=== PATIENT | male | born 1965 | race Caucasian/White ===

== ENCOUNTER → 2021-04-18 | Outpatient (CLI) | payer BC ==
--- NOTE | 2021-04-18 13:37 | Diagnostic Imaging Report ---
Indication: Pain. Findings: Three-view right shoulder shows severe glenohumeral osteoarthritis. No fracture or dislocation. Ossified body in the subcoracoid bursa noted. Impression: Glenohumeral arthritis and subcoracoid bursal loose body, the latter measuring almost 2 cm. No acute bony pathology. Dictated by: Dictated on workstation # [id number]
== END ==
LOC: RAD FS 10:00
PROVIDERS: ATTEND Nurse Practitioner
DX: M19.011 Primary osteoarthritis, right shoulder (principal)
CPT/HCPCS: 73030

== ENCOUNTER 2021-08-26 10:54 | Emergency (ER) | payer BC ==
[~2021-08-26] VITALS: Ht 175 cm; Wt 98.0 kg
--- OUTSIDE RECORDS SUMMARY | 2021-08-26 11:00 | XMS REPORT | Encounter Summary ---
Author Author [facility] Organization 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 * Radiology Services (Routine) - New Request Diagnoses / Procedures Referred By Contact Referred To [facility] Specialty Diagnoses Polyarthralgia Rash Procedures PELVIS ANTEROPOSTERIOR Christa Fox MD [address] [place] [address] Radiology Referral ID Status Reason Start Date Expiration Visits Vi sits Date Requested Authorized [id number] New Request 07/26/2021 07/26/2022 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 * Radiology Services (Routine) - New Request Diagnoses / Procedures Referred By Contact Referred To [facility] Specialty Diagnoses Polyarthralgia Rash Procedures SI JOINTS MIN 3 VIEWS Christa Fox MD [address] [place] [address] Radiology Referral ID Status Reason Start Date Expiration Visits Vi sits Date Requested Authorized [id number] New Request 07/26/2021 07/26/2022 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 * Radiology Services (Routine) - New Request Diagnoses / Procedures Referred By Contact Referred To [facility] Specialty Diagnoses Polyarthralgia Rash Procedures BOTH KNEES STANDING AP Christa Fox MD [address] [place] [address] Radiology Referral ID Status Reason Start Date Expiration Visits Vi sits Date Requested Authorized [id number] New Request 07/26/2021 07/26/2022 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 * Radiology Services (Routine) - New Request Diagnoses / Procedures Referred By Contact Referred To [facility] Specialty Diagnoses Polyarthralgia Rash Procedures FOOT 2 VIEW BILATERAL Christa Fox MD [address] [place] [address] Radiology Referral ID Status Reason Start Date Expiration Visits Vi sits Date Requested Authorized [id number] New Request 07/26/2021 07/26/2022 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 * Radiology Services (Routine) - New Request Diagnoses / Procedures Referred By Contact Referred To [facility] Specialty Diagnoses Polyarthralgia Rash Procedures HAND 2 VIEWS BILATERAL Christa Fox MD [address] [place] [address] Radiology Referral ID Status Reason Start Date Expiration Visits Vi sits Date Requested Authorized [id number] New Request 07/26/2021 07/26/2022 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 documented as of this encounter Medications at Time of Discharge Start Date End Date Medication Sig Dispensed Refills amLODIPine (NORVASC) 5 mg Take 5 mg by 0 tablet mouth daily. aspirin 81 mg chewable Chew 81 mg by 0 tablet mouth daily. Take with food. CLONIDINE HCL PO Take 0.2 mg 0 by mouth twice daily. 01/22/2021 evolocumab (REPATHA Inject 1 mL 2 mL 11 SURECLICK) 140 mg/mL under the injectable skin every 14 PENIndications: days. Hypercholesteremia 07/20/2021 FARXIGA 10 mg tablet 0 07/20/2021 hydrOXYchloroQUINE Take 600 mg 0 (PLAQUENIL) 200 mg tablet by mouth three times daily. lisinopril-hydrochlorothi Take 1 tablet 0 azide (PRINZIDE, by mouth ZESTORETIC) 20-12.5 mg twice daily. tablet naproxen (NAPROSYN) 375 Take 375 mg 0 mg tablet by mouth twice daily with meals. Take with food. 10/27/2017 nitroglycerin (NITROSTAT) Place 1 25 tablet 3 0.4 mg tabletIndications: tablet under Essential hypertension, tongue every Hypercholesteremia, 5 minutes as Coronary artery disease needed for due to lipid rich plaque, Chest Pain. Coronary artery disease Max of 3 of [place] artery of tablets, call [place] heart with stable 911. angina pectoris (HCC) 04/02/2020 spironolactone Take one 90 tablet 3 (ALDACTONE) 25 mg tablet tablet by mouth daily. Take with food. 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 Rash PELVIS ANTEROPOSTERIOR Routine 07/26/2021 Polyart hralgia 5:08 PM SUBWAY CAR REPAIRER Rash L SPINE AP & LATERAL Routine 07/26/2021 Polyarthr algia 5:08 PM SUBWAY CAR REPAIRER Rash HAND 2 VIEWS BILATERAL Routine 07/26/2021 Polyart hralgia 5:08 PM 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 No evidence of inflammatory arthrit is. 2. 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 Dedicated wrist imaging would be helpful for further evaluation. Finalized by Franklyn Muro M.D. on 07/26/2021 5:20 PM. Dictated by Franklyn Muro M.D. on 07/26/2021 5:13 PM. 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 Arthralgia. COMPARISON: FINDINGS: Feet: No erosions. Mild left midfoot arthrosis with dorsal spurring and chronic ossicle along the naviculocuneiform joint. Mild left first MTP and tibiotalar degenerative arthritis. Bilateral calcaneal spurs. Hands: No erosions. No chondrocalcinosis. 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 Advanced degenerative arthritis left radiocarpal, STT, and first CMC joints. Moderate degenerative arthritis right first CMC and STT joints. Knees: Mild degenerative arthritis both knees with medial compartment narrowing, greater on the right. No erosions. No chondrocalcinosis. Pelvis and SI joints. Hip joint spaces are maintained. Mild degenerative arthritis both SI joints without radiographic findings of sacroiliitis. Lumbar spine: Lower lumbar facet arthritis greatest at L4-L5 and L5-S1. Mild multilevel disc space narrowing. Low-grade anterolisthesis of L4 and L5. Procedure Note Franklyn Muro MD - 07/26/2021 Exam: FOOT 2 VIEW BILATERAL, L SPINE AP & LATERAL, PELVIS ANTEROPOSTERIOR, SI JOINTS MIN 3 VIEWS, BOTH KNEES STANDING AP, HAND 2 VIEWS BILATERAL CLINICAL INDICATION: 56 years. Arthralgia. COMPARISON: FINDINGS: Feet: No erosions. Mild left midfoot arthrosis with dorsal spurring and chronic ossicle along the naviculocuneiform joint. Mild left first MTP and tibiotalar degenerative arthritis. Bilateral calcaneal spurs. Hands: No erosions. No chondrocalcinosis. 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 Advanced degenerative arthritis left radiocarpal, STT, and first CMC joints. Moderate degenerative arthritis right first CMC and STT joints. Knees: Mild degenerative arthritis both knees with medial compartment narrowing, greater on the right. No erosions. No chondrocalcinosis. Pelvis and SI joints. Hip joint spaces are maintained. Mild degenerative arthritis both SI joints without radiographic findings of sacroiliitis. Lumbar spine: Lower lumbar facet arthritis greatest at L4-L5 and L5-S1. Mild multilevel disc space narrowing. Low-grade anterolisthesis of L4 and L5. IMPRESSION 1. No evidence of inflammatory arthriti s. 2. 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 Dedicated wrist imaging would be helpful for further evaluation. Finalized by Franklyn Muro M.D. on 07/26/2021 5:20 PM. Dictated by Franklyn Muro M.D. on 07/26/2021 5:13 PM. 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 No evidence of inflammatory arthrit is. 2. 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 Dedicated wrist imaging would be helpful for further evaluation. Finalized by Franklyn Muro M.D. on 07/26/2021 5:20 PM. Dictated by Franklyn Muro M.D. on 07/26/2021 5:13 PM. 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 Arthralgia. COMPARISON: FINDINGS: Feet: No erosions. Mild left midfoot arthrosis with dorsal spurring and chronic ossicle along the naviculocuneiform joint. Mild left first MTP and tibiotalar degenerative arthritis. Bilateral calcaneal spurs. Hands: No erosions. No chondrocalcinosis. 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 Advanced degenerative arthritis left radiocarpal, STT, and first CMC joints. Moderate degenerative arthritis right first CMC and STT joints. Knees: Mild degenerative arthritis both knees with medial compartment narrowing, greater on the right. No erosions. No chondrocalcinosis. Pelvis and SI joints. Hip joint spaces are maintained. Mild degenerative arthritis both SI joints without radiographic findings of sacroiliitis. Lumbar spine: Lower lumbar facet arthritis greatest at L4-L5 and L5-S1. Mild multilevel disc space narrowing. Low-grade anterolisthesis of L4 and L5. Procedure Note Franklyn Muro MD - 07/26/2021 Exam: FOOT 2 VIEW BILATERAL, L SPINE AP & LATERAL, PELVIS ANTEROPOSTERIOR, SI JOINTS MIN 3 VIEWS, BOTH KNEES STANDING AP, HAND 2 VIEWS BILATERAL CLINICAL INDICATION: 56 years. Arthralgia. COMPARISON: FINDINGS: Feet: No erosions. Mild left midfoot arthrosis with dorsal spurring and chronic ossicle along the naviculocuneiform joint. Mild left first MTP and tibiotalar degenerative arthritis. Bilateral calcaneal spurs. Hands: No erosions. No chondrocalcinosis. 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 Advanced degenerative arthritis left radiocarpal, STT, and first CMC joints. Moderate degenerative arthritis right first CMC and STT joints. Knees: Mild degenerative arthritis both knees with medial compartment narrowing, greater on the right. No erosions. No chondrocalcinosis. Pelvis and SI joints. Hip joint spaces are maintained. Mild degenerative arthritis both SI joints without radiographic findings of sacroiliitis. Lumbar spine: Lower lumbar facet arthritis greatest at L4-L5 and L5-S1. Mild multilevel disc space narrowing. Low-grade anterolisthesis of L4 and L5. IMPRESSION 1. No evidence of inflammatory arthriti s. 2. 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 Dedicated wrist imaging would be helpful for further evaluation. Finalized by Franklyn Muro M.D. on 07/26/2021 5:20 PM. Dictated by Franklyn Muro M.D. on 07/26/2021 5:13 PM. 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 No evidence of inflammatory arthrit is. 2. 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 Dedicated wrist imaging would be helpful for further evaluation. Finalized by Franklyn Muro M.D. on 07/26/2021 5:20 PM. Dictated by Franklyn Muro M.D. on 07/26/2021 5:13 PM. 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 Arthralgia. COMPARISON: FINDINGS: Feet: No erosions. Mild left midfoot arthrosis with dorsal spurring and chronic ossicle along the naviculocuneiform joint. Mild left first MTP and tibiotalar degenerative arthritis. Bilateral calcaneal spurs. Hands: No erosions. No chondrocalcinosis. 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 Advanced degenerative arthritis left radiocarpal, STT, and first CMC joints. Moderate degenerative arthritis right first CMC and STT joints. Knees: Mild degenerative arthritis both knees with medial compartment narrowing, greater on the right. No erosions. No chondrocalcinosis. Pelvis and SI joints. Hip joint spaces are maintained. Mild degenerative arthritis both SI joints without radiographic findings of sacroiliitis. Lumbar spine: Lower lumbar facet arthritis greatest at L4-L5 and L5-S1. Mild multilevel disc space narrowing. Low-grade anterolisthesis of L4 and L5. Procedure Note Franklyn Muro MD - 07/26/2021 Exam: FOOT 2 VIEW BILATERAL, L SPINE AP & LATERAL, PELVIS ANTEROPOSTERIOR, SI JOINTS MIN 3 VIEWS, BOTH KNEES STANDING AP, HAND 2 VIEWS BILATERAL CLINICAL INDICATION: 56 years. Arthralgia. COMPARISON: FINDINGS: Feet: No erosions. Mild left midfoot arthrosis with dorsal spurring and chronic ossicle along the naviculocuneiform joint. Mild left first MTP and tibiotalar degenerative arthritis. Bilateral calcaneal spurs. Hands: No erosions. No chondrocalcinosis. 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 Advanced degenerative arthritis left radiocarpal, STT, and first CMC joints. Moderate degenerative arthritis right first CMC and STT joints. Knees: Mild degenerative arthritis both knees with medial compartment narrowing, greater on the right. No erosions. No chondrocalcinosis. Pelvis and SI joints. Hip joint spaces are maintained. Mild degenerative arthritis both SI joints without radiographic findings of sacroiliitis. Lumbar spine: Lower lumbar facet arthritis greatest at L4-L5 and L5-S1. Mild multilevel disc space narrowing. Low-grade anterolisthesis of L4 and L5. IMPRESSION 1. No evidence of inflammatory arthriti s. 2. 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 Dedicated wrist imaging would be helpful for further evaluation. Finalized by Franklyn Muro M.D. on 07/26/2021 5:20 PM. Dictated by Franklyn Muro M.D. on 07/26/2021 5:13 PM. 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 No evidence of inflammatory arthrit is. 2. 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 Dedicated wrist imaging would be helpful for further evaluation. Finalized by Franklyn Mruo M.D. on 07/26/2021 5:20 PM. Dictated by Franklyn Muro M.D. on 07/26/2021 5:13 PM. 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 Arthralgia. COMPARISON: FINDINGS: Feet: No erosions. Mild left midfoot arthrosis with dorsal spurring and chronic ossicle along the naviculocuneiform joint. Mild left first MTP and tibiotalar degenerative arthritis. Bilateral calcaneal spurs. Hands: No erosions. No chondrocalcinosis. 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 Advanced degenerative arthritis left radiocarpal, STT, and first CMC joints. Moderate degenerative arthritis right first CMC and STT joints. Knees: Mild degenerative arthritis both knees with medial compartment narrowing, greater on the right. No erosions. No chondrocalcinosis. Pelvis and SI joints. Hip joint spaces are maintained. Mild degenerative arthritis both SI joints without radiographic findings of sacroiliitis. Lumbar spine: Lower lumbar facet arthritis greatest at L4-L5 and L5-S1. Mild multilevel disc space narrowing. Low-grade anterolisthesis of L4 and L5. Procedure Note Franklyn Muro MD - 07/26/2021 Exam: FOOT 2 VIEW BILATERAL, L SPINE AP & LATERAL, PELVIS ANTEROPOSTERIOR, SI JOINTS MIN 3 VIEWS, BOTH KNEES STANDING AP, HAND 2 VIEWS BILATERAL CLINICAL INDICATION: 56 years. Arthralgia. COMPARISON: FINDINGS: Feet: No erosions. Mild left midfoot arthrosis with dorsal spurring and chronic ossicle along the naviculocuneiform joint. Mild left first MTP and tibiotalar degenerative arthritis. Bilateral calcaneal spurs. Hands: No erosions. No chondrocalcinosis. 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 Advanced degenerative arthritis left radiocarpal, STT, and first CMC joints. Moderate degenerative arthritis right first CMC and STT joints. Knees: Mild degenerative arthritis both knees with medial compartment narrowing, greater on the right. No erosions. No chondrocalcinosis. Pelvis and SI joints. Hip joint spaces are maintained. Mild degenerative arthritis both SI joints without radiographic findings of sacroiliitis. Lumbar spine: Lower lumbar facet arthritis greatest at L4-L5 and L5-S1. Mild multilevel disc space narrowing. Low-grade anterolisthesis of L4 and L5. IMPRESSION 1. No evidence of inflammatory arthriti s. 2. 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 Dedicated wrist imaging would be helpful for further evaluation. Finalized by Franklyn Muro M.D. on 07/26/2021 5:20 PM. Dictated by Franklyn Muro M.D. on 07/26/2021 5:13 PM. 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 No evidence of inflammatory arthrit is. 2. 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 Dedicated wrist imaging would be helpful for further evaluation. Finalized by Franklyn Muro M.D. on 07/26/2021 5:20 PM. Dictated by Franklyn Muro M.D. on 07/26/2021 5:13 PM. 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 Arthralgia. COMPARISON: FINDINGS: Feet: No erosions. Mild left midfoot arthrosis with dorsal spurring and chronic ossicle along the naviculocuneiform joint. Mild left first MTP and tibiotalar degenerative arthritis. Bilateral calcaneal spurs. Hands: No erosions. No chondrocalcinosis. 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 Advanced degenerative arthritis left radiocarpal, STT, and first CMC joints. Moderate degenerative arthritis right first CMC and STT joints. Knees: Mild degenerative arthritis both knees with medial compartment narrowing, greater on the right. No erosions. No chondrocalcinosis. Pelvis and SI joints. Hip joint spaces are maintained. Mild degenerative arthritis both SI joints without radiographic findings of sacroiliitis. Lumbar spine: Lower lumbar facet arthritis greatest at L4-L5 and L5-S1. Mild multilevel disc space narrowing. Low-grade anterolisthesis of L4 and L5. Procedure Note Franklyn Muro MD - 07/26/2021 Exam: FOOT 2 VIEW BILATERAL, L SPINE AP & LATERAL, PELVIS ANTEROPOSTERIOR, SI JOINTS MIN 3 VIEWS, BOTH KNEES STANDING AP, HAND 2 VIEWS BILATERAL CLINICAL INDICATION: 56 years. Arthralgia. COMPARISON: FINDINGS: Feet: No erosions. Mild left midfoot arthrosis with dorsal spurring and chronic ossicle along the naviculocuneiform joint. Mild left first MTP and tibiotalar degenerative arthritis. Bilateral calcaneal spurs. Hands: No erosions. No chondrocalcinosis. 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 Advanced degenerative arthritis left radiocarpal, STT, and first CMC joints. Moderate degenerative arthritis right first CMC and STT joints. Knees: Mild degenerative arthritis both knees with medial compartment narrowing, greater on the right. No erosions. No chondrocalcinosis. Pelvis and SI joints. Hip joint spaces are maintained. Mild degenerative arthritis both SI joints without radiographic findings of sacroiliitis. Lumbar spine: Lower lumbar facet arthritis greatest at L4-L5 and L5-S1. Mild multilevel disc space narrowing. Low-grade anterolisthesis of L4 and L5. IMPRESSION 1. No evidence of inflammatory arthriti s. 2. 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 Dedicated wrist imaging would be helpful for further evaluation. Finalized by Franklyn Muro M.D. on 07/26/2021 5:20 PM. Dictated by Franklyn Muro M.D. on 07/26/2021 5:13 PM. 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 No evidence of inflammatory arthrit is. 2. 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 Dedicated wrist imaging would be helpful for further evaluation. Finalized by Franklyn Muro M.D. on 07/26/2021 5:20 PM. Dictated by Franklyn Muro M.D. on 07/26/2021 5:13 PM. 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 Arthralgia. COMPARISON: FINDINGS: Feet: No erosions. Mild left midfoot arthrosis with dorsal spurring and chronic ossicle along the naviculocuneiform joint. Mild left first MTP and tibiotalar degenerative arthritis. Bilateral calcaneal spurs. Hands: No erosions. No chondrocalcinosis. 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 Advanced degenerative arthritis left radiocarpal, STT, and first CMC joints. Moderate degenerative arthritis right first CMC and STT joints. Knees: Mild degenerative arthritis both knees with medial compartment narrowing, greater on the right. No erosions. No chondrocalcinosis. Pelvis and SI joints. Hip joint spaces are maintained. Mild degenerative arthritis both SI joints without radiographic findings of sacroiliitis. Lumbar spine: Lower lumbar facet arthritis greatest at L4-L5 and L5-S1. Mild multilevel disc space narrowing. Low-grade anterolisthesis of L4 and L5. Procedure Note Franklyn Muro MD - 07/26/2021 Exam: FOOT 2 VIEW BILATERAL, L SPINE AP & LATERAL, PELVIS ANTEROPOSTERIOR, SI JOINTS MIN 3 VIEWS, BOTH KNEES STANDING AP, HAND 2 VIEWS BILATERAL CLINICAL INDICATION: 56 years. Arthralgia. COMPARISON: FINDINGS: Feet: No erosions. Mild left midfoot arthrosis with dorsal spurring and chronic ossicle along the naviculocuneiform joint. Mild left first MTP and tibiotalar degenerative arthritis. Bilateral calcaneal spurs. Hands: No erosions. No chondrocalcinosis. 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 Advanced degenerative arthritis left radiocarpal, STT, and first CMC joints. Moderate degenerative arthritis right first CMC and STT joints. Knees: Mild degenerative arthritis both knees with medial compartment narrowing, greater on the right. No erosions. No chondrocalcinosis. Pelvis and SI joints. Hip joint spaces are maintained. Mild degenerative arthritis both SI joints without radiographic findings of sacroiliitis. Lumbar spine: Lower lumbar facet arthritis greatest at L4-L5 and L5-S1. Mild multilevel disc space narrowing. Low-grade anterolisthesis of L4 and L5. IMPRESSION 1. No evidence of inflammatory arthriti s. 2. 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 Dedicated wrist imaging would be helpful for further evaluation. Finalized by Franklyn Muro M.D. on 07/26/2021 5:20 PM. Dictated by Franklyn Muro M.D. on 07/26/2021 5:13 PM. Performing Organization Address City/State/ZIP Code P sylvia Number [facility] documented in this encounter Visit Diagnoses Diagnosis Polyarthralgia Pain in joint, multiple sites Rash Rash and other nonspecific skin eruptio n documented in this encounter Additional Health Concerns Noted Time Assessment 07/26/2021 3:25 PM SUBWAY CAR REPAIRER A fall risk assessment has been complet ed for the patient 07/26/2021 3:24 PM SUBWAY CAR REPAIRER PHQ-2 Depression Total Score: 0 documented as of this encounter Care Teams Start Date End Date Auto Body Worker Relationship Specialty 09/19/19 Shar Rosenberg DO PCP - [facility] [place] [address] [place] [address] documented as of this encounter
--- OUTSIDE RECORDS SUMMARY | 2021-08-26 11:00 | XMS REPORT | Encounter Summary ---
Author Author [facility] Organization [facility] Address Unknown Phone Unavailable Care Team Providers Care Pin Or Clip Fastener Name Role Phone Shar Rosenberg DO PCP Encounter Details Care Team Description Date Type Department 07/26/2021 Travel Social History Date Tobacco Use Types Packs/Day Years Used Quit: 05/10/2018 Former Smoker Cigarettes 0.25 30 Smokeless Tobacco: Former Snuff Quit: 2017 User Comments Alcohol Use Standard Drinks/Week Yes 2 (1 standard drink = 0.6 o z pure alcohol) Sex Assigned at Date Recorded Not on file Date Recorded COVID-19 Exposure Response 07/26/2021 3:08 PM BILLET CHECKER In the last month, have you been in contact with No / Unsure someone who was confirmed or suspected to have Coronavirus / COVID-19? documented as of this encounter Plan of Treatment Not on filedocumented as of this encounter Visit Diagnoses Not on filedocumented in this encounter Additional Health Concerns Noted Time Assessment 07/26/2021 3:25 PM BILLET CHECKER A fall risk assessment has been complet ed for the patient 07/26/2021 3:24 PM BILLET CHECKER PHQ-2 Depression Total Score: 0 documented as of this encounter Care Teams Start Date End Date Pin Or Clip Fastener Relationship Specialty 09/19/19 Shar Rosenberg DO PCP - [address] [address] documented as of this encounter
--- OUTSIDE RECORDS SUMMARY | 2021-08-26 11:00 | XMS REPORT | Encounter Summary ---
Author Author [facility] Organization [facility] Address Unknown Phone Unavailable Care Team Providers Care Electronic News Gathering Editor Name Role Phone ShakiraShar PCP Reason for Visit * Reason Onset Date Comments Labs Only 08/22/2021 Encounter Details Care Team Description Date Type Department Jazmín Reed RN Labs Only 08/22/2021 Telephone Cardiology: [facility] [address] [place] [address] Social History Date Tobacco Use Types Packs/Day Years Used Quit: 05/10/2018 Former Smoker Cigarettes 0.25 30 Smokeless Tobacco: Former Snuff Quit: 2017 User Comments Alcohol Use Standard Drinks/Week Yes 2 (1 standard drink = 0.6 o z pure alcohol) Sex Assigned at Date Recorded Not on file Date Recorded COVID-19 Exposure Response 07/26/2021 3:08 PM SHAPER OPERATOR In the last month, have you been in contact with No / Unsure someone who was confirmed or suspected to have Coronavirus / COVID-19? documented as of this encounter Miscellaneous Notes * Telephone Encounter - Jazmín Reed RN - 08/22/2021 1:41 PM SHAPER OPERATOR Received message from Ruma in pharmacy inquiring about labs for moe ghosh chandra. Spoke with patient. He had FLP drawn at PCP in June. I called and left message at PCP requesting FLP be faxed to us. ER OPERATOR documented in this encounter Plan of Treatment Not on filedocumented as of this encounter Visit Diagnoses Not on filedocumented in this encounter Additional Health Concerns Noted Time Assessment 07/26/2021 3:25 PM SHAPER OPERATOR A fall risk assessment has been complet ed for the patient 07/26/2021 3:24 PM SHAPER OPERATOR PHQ-2 Depression Total Score: 0 documented as of this encounter Care Teams Start Date End Date Electronic News Gathering Editor Relationship Specialty 09/19/19 Shar Rosenberg DO PCP - [address] [address] documented as of this encounter
--- OUTSIDE RECORDS SUMMARY | 2021-08-26 11:00 | XMS REPORT | Encounter Summary ---
Author Author [facility] Organization [facility] Address Unknown Phone Unavailable Care Team Providers Care Paste Up Artist Apprentice Name Role Phone ShakiraShar PCP Encounter Details Care Team Description Date Type Department Christa Fox MD [address] [place] [address] 07/26/2021 Hospital Laboratory: [facility], Encounter [facility] [address] [place] [address] [address], [address] [place] [id number] Social History Date Tobacco Use Types Packs/Day Years Used Quit: 05/10/2018 Former Smoker Cigarettes 0.25 30 Smokeless Tobacco: Former Snuff Quit: 2017 User Comments Alcohol Use Standard Drinks/Week Yes 2 (1 standard drink = 0.6 o z pure alcohol) Sex Assigned at Date Recorded Not on file Date Recorded COVID-19 Exposure Response 07/26/2021 3:08 PM QUALITY ASSURANCE ANALYST In the last month, have you been [...] Coronary artery disease Max of 3 of [place] artery of tablets, call [place] heart with stable 911. angina pectoris (HCC) [...] Procedure Name Priority Date/Time Associated Diag nosis HC RHEUMATOID Routine 07/26/2021 Polyarthralgia FACTOR:QUANT 4:05 PM QUALITY ASSURANCE ANALYST Rash HC CCP IGG ANTIBODY Routine 07/26/2021 Polyarthra lgia 4:05 PM QUALITY ASSURANCE ANALYST Rash HC SED RATE; MANUAL Routine 07/26/2021 Polyarthra lgia 4:05 PM QUALITY ASSURANCE ANALYST Rash HC CBC W/ AUTOMATED DIFF Routine 07/26/2021 Polya rthralgia 4:05 PM QUALITY ASSURANCE ANALYST Rash HC C-REACTIVE PROTEIN Routine 07/26/2021 Polyarth ralgia (CRP) 4:05 PM QUALITY ASSURANCE ANALYST Rash HC COMPREHENSIVE Routine 07/26/2021 Polyarthralgi a METABOLIC PANEL 4:05 PM QUALITY ASSURANCE ANALYST Rash documented in this encounter Results * RHEUMATOID FACTOR (RF) (07/26/2021 4:05 PM QUALITY ASSURANCE ANALYST) Rheum Factor <10 <25 IU/mL [facility] Screen Specimen Blood (substance) Performing Organization Address [facility] Code P sylvia Number [facility] [address] [place] [address] * CCP IGG ANTIBODY (07/26/2021 4:05 PM QUALITY ASSURANCE ANALYST) CCP IgG <0.5 <3.0 U/mL [facility] Antibody Specimen Blood (substance) Performing Organization Address [facility] P sylvia Number [facility] [address] [place] [address] * (ABNORMAL) COMPREHENSIVE METABOLIC PANEL (07/26/2021 4:05 PM QUALITY ASSURANCE ANALYST) Pathologist [facility] Sodium 142 137 - 147 MMOL/L [facility] Potassium 4.0 3.5 - 5.1 MMOL/L [facility] Chloride 104 98 - 110 MMOL/L [facility] Glucose 93 70 - 100 MG/DL [facility] Blood Urea 24 7 - 25 MG/DL [facility] Nitrogen Creatinine 1.55 (H) 0.4 - 1.24 MG/DL [facility] Calcium 9.9 8.5 - 10.6 MG/DL [facility] Total Protein 7.5 6.0 - 8.0 G/DL [facility] Total Bilirubin 0.4 0.3 - 1.2 MG/DL [facility] Albumin 4.5 3.5 - 5.0 G/DL [facility] Alk Phosphatase 58 25 - 110 U/L [facility] AST (SGOT) 26 7 - 40 U/L [facility] CO2 28 21 - 30 MMOL/L [facility] ALT (SGPT) 38 7 - 56 U/L [facility] Anion Gap 10 3 - 12 [facility] eGFR 53 (L)Comment: eGFR calculated >60 mL/min [facility] using the CKD-EPIcr_R equation Specimen Blood (substance) Performing Organization Address [facility] Code P sylvia Number [facility] [address] [place] [address] * (ABNORMAL) CBC AND DIFF (07/26/2021 4:05 PM QUALITY ASSURANCE ANALYST) White Blood 7.4 4.5 - 11.0 K/UL [facility] Cells RBC 4.75 4.4 - 5.5 M/UL [facility] Hemoglobin 14.7 13.5 - 16.5 GM/DL [facility] Hematocrit 44.4 40 - 50 % [facility] MCV 93.5 80 - 100 FL [facility] MCH 31.0 26 - 34 PG [facility] MCHC 33.2 32.0 - 36.0 G/DL [facility] RDW 15.9 (H) 11 - 15 % [facility] Platelet Count 169 150 - 400 K/UL [facility] MPV 10.5 7 - 11 FL [facility] Neutrophils 57 41 - 77 % [facility] Lymphocytes 27 24 - 44 % [facility] Monocytes 11 4 - 12 % [facility] Eosinophils 4 0 - 5 % [facility] Basophils 1 0 - 2 % [facility] Absolute 4.23 1.8 - 7.0 K/UL [facility] Neutrophil Count Absolute Lymph 1.99 1.0 - 4.8 K/UL [facility] Count Absolute 0.81 (H) 0 - 0.80 K/UL [facility] Monocyte Count Absolute 0.29 0 - 0.45 K/UL [facility] Eosinophil Count Absolute 0.09 0 - 0.20 K/UL [facility] Basophil Count Specimen Blood (substance) Performing Organization Address City/[facility]/ZIP Code P sylvia Number [facility] [address] [place] [address] * SED RATE (07/26/2021 4:05 PM QUALITY ASSURANCE ANALYST) Sed Rate -ESR 19 0 - 20 MM/HR [facility] Specimen Blood (substance) Performing Organization Address City/[facility]/ZIP [facility] P sylvia Number [facility] [address] [place] [address] * C REACTIVE PROTEIN (CRP) (07/26/2021 4:05 PM QUALITY ASSURANCE ANALYST) C-Reactive 0.31 <1.0 MG/DL [facility] Protein Specimen Blood (substance) Performing Organization Address [facility]/ZIP [facility] P sylvia Number [facility] [address] [place] [address] documented in this encounter Visit Diagnoses Diagnosis Polyarthralgia Pain in joint, multiple sites Rash Rash and other nonspecific skin eruptio n Chronic kidney disease, unspecified CKD stage documented in this encounter Additional Health Concerns Noted Time Assessment 07/26/2021 3:25 PM QUALITY ASSURANCE ANALYST A fall risk assessment has been complet ed for the patient 07/26/2021 3:24 PM QUALITY ASSURANCE ANALYST PHQ-2 Depression Total Score: 0 documented as of this encounter Care Teams Start Date End Date Paste Up Artist Apprentice Relationship Specialty 09/19/19 Shar Rosenberg DO PCP - [address] [address] documented as of this encounter
--- OUTSIDE RECORDS SUMMARY | 2021-08-26 11:00 | XMS REPORT | Encounter Summary ---
Author Author [facility] Organization [facility] Address Unknown Phone Unavailable Care Team Providers Care Soda Clerk Name Role Phone CristianShar moon PCP Reason for Referral * Radiology Services (Routine) - New Request Diagnoses / Procedures Referred By Contact Referred To Conta ct Specialty Diagnoses Polyarthralgia Rash Procedures L SPINE AP & LATERAL Christa Fox MD [address] [place] [address] Radiology Referral ID Status Reason Start Date Expiration Visits Vi sits Date Requested Authorized [id number] New Request 07/26/2021 07/26/2022 1 1 [employer] * Radiology Services (Routine) - New Request Diagnoses / Procedures Referred By Contact Referred To Conta ct Specialty Diagnoses Polyarthralgia Rash Procedures PELVIS ANTEROPOSTERIOR Christa Fox MD [address] [place] [address] Radiology Referral ID Status Reason Start Date Expiration Visits Vi sits Date Requested Authorized [id number] New Request 07/26/2021 07/26/2022 1 1 [employer] * Radiology Services (Routine) - New Request Diagnoses / Procedures Referred By Contact Referred To Conta ct Specialty Diagnoses Polyarthralgia Rash Procedures SI JOINTS MIN 3 VIEWS Christa Fox MD [address] [place] [address] Radiology Referral ID Status Reason Start Date Expiration Visits Vi sits Date Requested Authorized [id number] New Request 07/26/2021 07/26/2022 1 1 [employer] * Radiology Services (Routine) - New Request Diagnoses / Procedures Referred By Contact Referred To Conta ct Specialty Diagnoses Polyarthralgia Rash Procedures BOTH KNEES STANDING AP Christa Fox MD [address] [place] [address] Radiology Referral ID Status Reason Start Date Expiration Visits Vi sits Date Requested Authorized [id number] New Request 07/26/2021 07/26/2022 1 1 [employer] * Radiology Services (Routine) - New Request Diagnoses / Procedures Referred By Contact Referred To Conta ct Specialty Diagnoses Polyarthralgia Rash Procedures FOOT 2 VIEW BILATERAL Christa Fox MD [address] [place] [address] Radiology Referral ID Status Reason Start Date Expiration Visits Vi sits Date Requested Authorized [id number] New Request 07/26/2021 07/26/2022 1 1 [employer] * Radiology Services (Routine) - New Request Diagnoses / Procedures Referred By Contact Referred To Conta ct Specialty Diagnoses Polyarthralgia Rash Procedures HAND 2 VIEWS BILATERAL Christa Fox MD [address] [place] [address] Radiology Referral ID Status Reason Start Date Expiration Visits Vi sits Date Requested Authorized [id number] New Request 07/26/2021 07/26/2022 1 1 [employer] Reason for Visit * Reason Comments New Patient * Consult, Test & Treat (Routine) - Pending Review Diagnoses / Procedures Referred By Contact Referred To Conta ct Specialty Diagnoses Inflammatory polyarthropathy (HCC) Shar Rosenberg, DO [address] [place] [address] [facility] Rheumatology Cl [address] [address], [address] [place] [address] Rheumatology Referral ID Status Reason Start Date Expiration Visits Vi sits Date Requested Authorized [id number] Pending 07/09/2021 07/09/2022 2 1 Review Encounter Details Care Team Description Date Type Department Christa Fox MD [address] [place] [address] Polyarthralgia (Primary Dx); Rash; Chronic kidney disease, unspecified CKD stage; History of left shoulder replacement 07/26/2021 Office Visit Rheumatology: [facility], [facility] [address] [address], [address] [place] [address] Social History Date Tobacco Use Types Packs/Day Years Used Quit: 05/10/2018 Former Smoker Cigarettes 0.25 30 Smokeless Tobacco: Former Snuff Quit: 2017 User Comments Alcohol Use Standard Drinks/Week Yes 2 (1 standard drink = 0.6 o z pure alcohol) Sex Assigned at Date Recorded Not on file Date Recorded COVID-19 Exposure Response 07/26/2021 3:08 PM [employer] In the last month, have you been in contact with No / Unsure someone who was confirmed or suspected to have Coronavirus / COVID-19? documented as of this encounter Last Filed Vital Signs Reading Time Taken Comments Vital Sign 157/99 07/26/2021 3:19 PM [employer] Blood Pressure 53 07/26/2021 3:19 PM [employer] Pulse 36.9 C (98.5 F) 07/26/2021 3:19 PM [employer] Temperature 18 07/26/2021 3:19 PM [employer] Respiratory Rate 98% 07/26/2021 3:19 PM [employer] Oxygen Saturation - - Inhaled Oxygen Concentration 108.2 kg (238 lb 9.6 oz) 07/26/2021 3:19 PM [employer] Weight 175.3 cm (5' 9") 07/26/2021 3:19 PM [employer] Height 35.24 07/26/2021 3:19 PM [employer] Body Mass Index documented in this encounter Progress Notes * Christa Fox MD - 07/26/2021 3:40 PM [employer] RHEUMATOLOGY CONSULT CHIEF COMPLAINT: Evaluation for psoriatic arthritis SUBJECTIVE: This is a very pleasant 56-year-old male who I met in clinic today. Patient has been referred to rheumatology for shoulder pain as detailed below. His primary care doctor is concerned about psoriatic arthritis in the setting of rash as d etailed below. Patient mentioned that he has been dealing with right shoulder pain for the last few months. His left shoulder was replaced about 3 years ago. In addition to right shoulder pain he does notice pain in his wrists, time to ti me. Sometimes his elbows hurt as well and are tender to touch on the inside. The worst time of the day for his joint pain is at the end of the day. He has also noticed his joints being full, feeling swollen-particularly his wris t feels like this most of the time. He had a red flaky rash on his right knee which his primary care doctor thought was psoriasis. This rash has now completely resolved without treatment. Blaise nunez unfortunately does not have pictures of this today. This rash has come back i n the same location several times. He does have dry skin all over but no rash c oncerning for psoriasis in any other location. No history of Crohn's disease or ulcerative colitis. No history of uveitis or i ritis. No history of a single joints swelling up like a sausage. Patient mentioned that he used to take Aleve for joint pain-at one time he was t aking 4 Aleve together. He took this for years. This did help him moderately. After this he tried meloxicam and this helped as well but his doctor asked him t o stop this because of lowered kidney function. Currently he is taking hydroxychloroquine which was started by his primary care doctor until he was able to get in with rheumatology. He did have an x-ray of his right shoulder done-this showed findings consistent with osteoarthritis as documented below. In terms of family history-his grandfather had rheumatoid arthritis Reviewed notes from [facility]. REVIEW OF SYSTEMS: Review of Systems Musculoskeletal: Positive for joint swelling (wrist). Skin: Positive for color change and rash. Neurological: Positive for numbness (hands ). Psychiatric/Behavioral: Positive for sleep disturbance. All other systems reviewed and are negative. The following patient medical history listed below were reviewed and updated whe re appropriate: Medical History: Diagnosis Date CAD (coronary artery disease) 10/26/2017 Coronary artery disease due to lipid rich plaque 10/13/2017 [facility] 02/2015- [facility] [place]- Diffuse 50-70% LAD and Diag disease, plaque in L CX and nondominant RCA, LVEF- Nml Essential hypertension 10/13/2017 Renal angio 2014- reportedly normal per patient Hypercholesteremia 10/14/2017 Type 2 diabetes mellitus without complication (HCC) 10/13/2018 Surgical History: Procedure Laterality Date ANGIOGRAPHY CORONARY ARTERY N/A 10/26/2017 Performed by Chalo Ferreira MD at [facility] CHIEF QUALITY OFFICER POSSIBLE PERCUTANEOUS CORONARY STENT PLACEMENT WITH ANGIOPLASTY N/A 8 Performed by Chalo Ferreira MD at [facility] CHIEF QUALITY OFFICER SHOULDER SURGERY Social History Socioeconomic History Marital status: Spouse name: Not on file Number of children: Not on file Years of education: Not on file Highest education level: Not on file Occupational History Not on file Tobacco Use Smoking status: Former Smoker Packs/day: 0.25 Years: 30.00 Pack years: 7.50 Types: Cigarettes Quit date: 05/10/2018 Years since quittin.2 Smokeless tobacco: Former User Types: Snuff Quit date: 05/10/2018 Substance and Sexual Activity Alcohol use: Yes Alcohol/week: 2.0 standard drinks Types: 2 Cans of beer per week Drug use: Yes Frequency: 1.0 times per week Types: Marijuana Sexual activity: Not on file Other Topics Concern Not on file Social History Narrative Not on file No history of smoking or drinking. 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 Family History Problem Relation Age of Onset Cancer Father MEDICATIONS: Current Outpatient Medications on File Prior to Visit Medication Sig Dispense Refill amLODIPine (NORVASC) 5 mg tablet Take 5 mg by mouth daily. aspirin 81 mg chewable tablet Chew 81 mg by mouth daily. Take with food. CLONIDINE HCL PO Take 0.2 mg by mouth twice daily. evolocumab (REPATHA SURECLICK) 140 mg/mL injectable PEN Inject 1 mL under th e skin every 14 days. 2 mL 11 FARXIGA 10 mg tablet hydrOXYchloroQUINE (PLAQUENIL) 200 mg tablet Take 600 mg by mouth three time s daily. lisinopril-hydrochlorothiazide (PRINZIDE, ZESTORETIC) 20-12.5 mg tablet Take 1 tablet by mouth twice daily. naproxen (NAPROSYN) 375 mg tablet Take 375 mg by mouth twice daily with meal s. Take with food. nitroglycerin (NITROSTAT) 0.[address] 1 tablet under tongue every 5 minutes as needed for Chest Pain. Max of 3 tablets, call 911. 25 tablet 3 spironolactone (ALDACTONE) 25 mg tablet Take one tablet by mouth daily. Take with food. (Patient not taking: Reported on 01/22/2021) 90 tablet 3 No current facility-administered medications on file prior to visit. PHYSICAL EXAM Vitals: 07/26/21 1519 BP: (!) 157/99 BP Source: Arm, Right Upper Patient Position: Sitting Pulse: 53 Resp: 18 Temp: 36.9 C (98.5 F) SpO2: 98% Weight: 108.2 kg (238 lb 9.6 oz) Height: 175.3 cm (69") PainSc: Eight Gen: AOx3, NAD HEENT: normocephalic, atraumatic, PERRLA, normal oropharynx mucosa Neck: no cervical lymphadenopathy, no goiter CV: RRR w/o m/r/g Pulm: CTAB, no respiratory distress Abd: S,ND,NTTP, no palpable hepatosplenomegaly Ext: No lower extremity edema, no nail changes noted Neuro: Grossly non-focal, Skin:Warm, well perfused, no rashes, no nodules. Dry skin over dorsum of both hands, behind ears MSK: Upper extremities: No warmth, tenderness or swelling at bilateral elbow, wr ist, MCP, PIP or DIP. Lower extremities: Bilateral knees, ankles and feet are without warmth, erythema or effusion, normal ROM No synovitis appreciated today. LABS: Labs reviewed with the patient in detail. IMAGING: Right shoulder x-ray-this was done at [facility]- enohumeral arthritis with subcoracoid bursal loose body almost 2 cm. No acute b annel pathology. ASSESSMENT AND PLAN 1. Polyarthralgia C REACTIVE PROTEIN (CRP) SED RATE CBC AND DIFF COMPREHENSIVE METABOLIC PANEL CCP IGG ANTIBODY RHEUMATOID FACTOR (RF) HAND 2 VIEWS BILATERAL FOOT 2 VIEW BILATERAL BOTH KNEES STANDING AP SI JOINTS MIN 3 VIEWS PELVIS ANTEROPOSTERIOR L SPINE AP & LATERAL 2. Rash C REACTIVE PROTEIN (CRP) SED RATE CBC AND DIFF COMPREHENSIVE METABOLIC PANEL CCP IGG ANTIBODY RHEUMATOID FACTOR (RF) HAND 2 VIEWS BILATERAL FOOT 2 VIEW BILATERAL BOTH KNEES STANDING AP SI JOINTS MIN 3 VIEWS PELVIS ANTEROPOSTERIOR L SPINE AP & LATERAL 3. Chronic kidney disease, unspecified CKD stage CANCELED: CBC AND DIFF CANCELED: COMPREHENSIVE METABOLIC PANEL 4. History of left shoulder replacement I met with Mr. West in clinic today. With patient reporting pain in multip le joints which is worse at the end of the day we discussed that this pattern wa s more concerning for osteoarthritis than psoriatic arthritis. He did not have any synovitis on examination today. Unfortunately the scaly rash that he describes on his right knee has now complet pernell resolved. Patient described this as a lot of dry skin but he did not notice any silvery smith scales which makes me wonder if this was truly psoriasis or if it was severe eczema as he does have a lot of dry skin in other locations leg d orsum of both hands, some behind both years. We also discussed that hydroxychloroquine is not a medication of choice for psor iatic arthritis as this can sometimes make the skin disease worse. I do think he should stop the hydroxychloroquine. We will then complete labs and x-rays as detailed below to complete work-up for inflammatory arthropathy. Further plan based upon lab and x-ray results. Okay to try Tylenol arthritis and Voltaren gel on an as-needed basis. Patient has noticed good relief with a corticosteroid injection in his right cleo jesika-he was told that he is not a good candidate for these-I do think it is ainsley sonable to offer these to him after an interval of 3 to 6 months. His last one was in April 2021. I did recommend that he should consider getting these fr om an orthopedic doctor due to the loose body noted on his x-ray. Plan: -CBC, CMP -ESR, CRP -RF, anti-CCP -X-rays of hands, feet, knees, SI joints, pelvis, LS spine -Return to clinic in 10 weeks Patient Instructions It was great seeing you in clinic today. Please get your lab work and X-rays don e after your visit today. Try Tylenol arthritis on an as needed basis (upto 2000 mg in 24 hours). Try Vol ynes gel as needed. We will see you back in clinic in 10 weeks. We will be in touch with you, once your lab work and X-rays from today's appoint ment are resulted. If you need to get in touch with us meanwhile please feel kailee e to use My Chart or call us at [phone]- this is Dr Fox's RN Kait's num gin,she will be happy to assist you. Christa Fox MD Rheumatology and Immunology 3:55 PM07/26/2021 Christa Fox MD Rheumatology and Immunology 3:36 PM07/26/2021 [employer] documented in this encounter Miscellaneous Notes * Patient Instructions - Christa Fox MD - 07/26/2021 3:40 PM [employer] It was great seeing you in clinic today. Please get your lab work and X-rays don e after your visit today. Try Tylenol arthritis on an as needed basis (upto 2000 mg in 24 hours). Try Vol ynes gel as needed. We will see you back in clinic in 10 weeks. We will be in touch with you, once your lab work and X-rays from today's appoint ment are resulted. If you need to get in touch with us meanwhile please feel kailee e to use My Chart or call us at [phone]- this is Dr Fox's RN Kait's num gin,she will be happy to assist you. Christa Fox MD Rheumatology and Immunology 3:55 PM07/26/2021 [employer] documented in this encounter Plan of Treatment Not on filedocumented as of this encounter Results * L SPINE AP & LATERAL (07/26/2021 5:08 PM [employer]) Modality Anatomical Region Laterality Computed Radiography Spine, L-Spine Specimen Impressions [facility] RESULTS - 07/26/2021 5:20 PM [employer] 1. No evidence of inflammatory arthrit is. 2. 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 Dedicated wrist imaging would be helpful for further evaluation. Finalized by Franklyn Muro M.D. on 07/26/2021 5:20 PM. Dictated by Franklyn Muro M.D. on 07/26/2021 5:13 PM. Narrative [facility] RESULTS - 07/26/2021 5:20 PM [employer] Exam: FOOT 2 VIEW BILATERAL, L SPINE [...] RESULTS * PELVIS ANTEROPOSTERIOR (07/26/2021 5:08 PM [employer]) Modality Anatomical Region Laterality Computed Radiography Pelvis Specimen Impressions [facility] RESULTS - 07/26/2021 5:20 PM [employer] 1. No evidence of inflammatory arthrit is. 2. 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 Dedicated wrist imaging would be helpful for further evaluation. Finalized by Franklyn Muro M.D. on 07/26/2021 5:20 PM. Dictated by Franklyn Muro M.D. on 07/26/2021 5:13 PM. Narrative [facility] RESULTS - 07/26/2021 5:20 PM [employer] Exam: FOOT 2 VIEW BILATERAL, L SPINE [...] JOINTS MIN 3 VIEWS (07/26/2021 5:08 PM [employer]) Modality Anatomical Region Laterality Computed Radiography Pelvis Specimen Impressions [facility] RESULTS - 07/26/2021 5:20 PM [employer] 1. No evidence of inflammatory arthrit is. 2. 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 Dedicated wrist imaging would be helpful for further evaluation. Finalized by Franklyn Muro M.D. on 07/26/2021 5:20 PM. Dictated by Franklyn Muro M.D. on 07/26/2021 5:13 PM. Narrative [facility] RESULTS - 07/26/2021 5:20 PM [employer] Exam: FOOT 2 VIEW BILATERAL, L SPINE [...] BOTH KNEES STANDING AP (07/26/2021 5:08 PM [employer]) Modality Anatomical Region Laterality Computed Radiography Knee Bilateral Specimen Impressions [facility] RESULTS - 07/26/2021 5:20 PM [employer] 1. No evidence of inflammatory arthrit is. 2. 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 Dedicated wrist imaging would be helpful for further evaluation. Finalized by Franklyn Muro M.D. on 07/26/2021 5:20 PM. Dictated by Franklyn Muro M.D. on 07/26/2021 5:13 PM. Narrative [facility] RESULTS - 07/26/2021 5:20 PM [employer] Exam: FOOT 2 VIEW BILATERAL, L SPINE [...] FOOT 2 VIEW BILATERAL (07/26/2021 5:08 PM [employer]) Modality Anatomical Region Laterality Computed Radiography Foot Bilateral Specimen Impressions [facility] RESULTS - 07/26/2021 5:20 PM [employer] 1. No evidence of inflammatory arthrit is. 2. 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 Dedicated wrist imaging would be helpful for further evaluation. Finalized by Franklyn Muro M.D. on 07/26/2021 5:20 PM. Dictated by Franklyn Muro M.D. on 07/26/2021 5:13 PM. Narrative [facility] RESULTS - 07/26/2021 5:20 PM [employer] Exam: FOOT 2 VIEW BILATERAL, L SPINE [...] HAND 2 VIEWS BILATERAL (07/26/2021 5:08 PM [employer]) Modality Anatomical Region Laterality Computed Radiography Hand Bilateral Specimen Impressions [facility] RESULTS - 07/26/2021 5:20 PM [employer] 1. No evidence of inflammatory arthrit is. 2. 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 Dedicated wrist imaging would be helpful for further evaluation. Finalized by Franklyn Muro M.D. on 07/26/2021 5:20 PM. Dictated by Franklyn Muro M.D. on 07/26/2021 5:13 PM. Narrative [facility] RESULTS - 07/26/2021 5:20 PM [employer] Exam: FOOT 2 VIEW BILATERAL, L SPINE [...] on 07/26/2021 5:13 PM. Performing Organization Address [facility]/ZIP Code P sylvia Number [facility] RESULTS * RHEUMATOID FACTOR (RF) (07/26/2021 4:05 PM [employer]) Rheum Factor <10 <25 IU/mL [facility] Screen Specimen Blood (substance) Performing Organization Address [facility] P sylvia Number [facility] [address] [place] [address] * CCP IGG ANTIBODY (07/26/2021 4:05 PM [employer]) CCP IgG <0.5 <3.0 U/mL [facility] Antibody Specimen Blood (substance) Performing Organization Address [facility] P sylvia Number [facility] [address] [place] [address] * (ABNORMAL) COMPREHENSIVE METABOLIC PANEL (07/26/2021 4:05 PM [employer]) Sodium 142 137 - 147 MMOL/L [facility] [...] equation Specimen Blood (substance) Performing Organization Address City/State/ZIP Code P sylvia Number [facility] [address] [place] [address] * (ABNORMAL) CBC AND DIFF (07/26/2021 4:05 PM [employer]) White Blood 7.4 4.5 - 11.0 K/UL [...] Count Specimen Blood (substance) Performing Organization Address City/State/ZIP Code P sylvia Number [facility] [address] [place] [address] * SED RATE (07/26/2021 4:05 PM [employer]) Sed Rate -ESR 19 0 - 20 MM/HR [facility] Specimen Blood (substance) Performing Organization Address City/State/ZIP Code P sylvia Number [facility] [address] [place] [address] * C REACTIVE PROTEIN (CRP) (07/26/2021 4:05 PM [employer]) C-Reactive 0.31 <1.0 MG/DL [facility] Protein Specimen Blood (substance) Performing Organization Address City/[facility]/ZIP Code P sylvia Number MAIN LAB [address] [place] [address] documented in this encounter Visit Diagnoses Diagnosis Polyarthralgia - Primary Pain in joint, multiple sites Rash Rash and other nonspecific skin eruptio n Chronic kidney disease, unspecified CKD stage History of left shoulder replacement Polyarthralgia Pain in joint, multiple sites Rash Rash and other nonspecific skin eruptio n documented in this encounter Historical Medications * This list may reflect changes made after this encounter. Start Date End Date Medication Sig Dispensed Refills 07/20/2021 hydrOXYchloroQUINE Take 600 mg 0 (PLAQUENIL) 200 mg tablet by mouth three times daily. 07/20/2021 FARXIGA 10 mg tablet 0 added in this encounter Additional Health Concerns Noted Time Assessment 07/26/2021 3:25 PM [employer] A fall risk assessment has been complet ed for the patient 07/26/2021 3:24 PM [employer] PHQ-2 Depression Total Score: 0 documented as of this encounter Care Teams Start Date End Date Soda Clerk Relationship Specialty 09/19/19 Shar Rosenberg DO PCP - General [address] [place] [address] documented as of this encounter
--- OUTSIDE RECORDS SUMMARY | 2021-08-26 11:00 | XMS REPORT | Clinical Summary ---
Author Author [facility] Organization [facility] Address Unknown Phone Unavailable Care Team Providers Care Nut Dehydrator Operator Name Role Phone Shar Rosenberg DO PCP Source Comments Some departments are not documenting in the electronic medical record. If you d o not see the information that you expected, contact Release of Information in [facility] Information Management department at [phone] for further assistan ce in locating additional records.[facility] Allergies No known active allergies Medications End Date Status Medication Sig Dispensed Refills Start Date Active aspirin 81 mg chewable Chew 81 mg by 0 tablet mouth daily. Take with food. Active lisinopril-hydrochlorothi Take 1 tablet 0 azide (PRINZIDE, by mouth ZESTORETIC) 20-12.5 mg twice daily. tablet Active CLONIDINE HCL PO Take 0.2 mg 0 by mouth twice daily. Active nitroglycerin (NITROSTAT) Place 1 25 tablet 3 0.4 mg tabletIndications: tablet under 8 Essential hypertension, tongue every Hypercholesteremia, 5 minutes as Coronary artery disease needed for due to lipid rich plaque, Chest Pain. Coronary artery disease Max of 3 of hoopa artery of tablets, call hoopa heart with stable 911. angina pectoris (HCC) Active amLODIPine (NORVASC) 5 mg Take 5 mg by 0 tablet mouth daily. Active spironolactone Take one 90 tablet 3 (ALDACTONE) 25 mg tablet tablet by 0 mouth daily. Take with food. Additional Information Patient not taking. Reported on 01/22/2021 Active naproxen (NAPROSYN) 375 Take 375 mg 0 mg tablet by mouth twice daily with meals. Take with food. Active evolocumab (REPATHA Inject 1 mL 2 mL 11 SURECLICK) 140 mg/mL under the 1 injectable skin every 14 PENIndications: days. Hypercholesteremia Active FARXIGA 10 mg tablet 0 1 Active hydrOXYchloroQUINE Take 600 mg 0 (PLAQUENIL) 200 mg tablet by mouth 1 three times daily. Active Problems Problem Noted Date Type 2 diabetes mellitus without complication 2018 CAD (coronary artery disease) 10/26/2017 Overview: Formatting of this note might be differ ent from the original. [facility] 02/2015- [place] in [place]- Diffuse 50-70% LAD and Diag disease, plaque in LCX and nondominant RCA, LVEF- Nml 10/26/17: Cardiac cath: 40%mLAD, 80-90% mid/distal with successful LEONELA, Lcx dominant and free of dz, RCA small non dominant free of dz ~ DAPT with Aspirin lifelong and Plavix 75 mg daily at least 6 months to prevent stent thrombosis and possible m yocardial infarction. Hypercholesteremia 10/14/2017 Pulmonary hyperinflation 10/13/2017 Overview: Formatting of this note might be differ ent from the original. 11/2014- Echo Mod-Severe pulmonary hyper tension with PAP pressures 42-46mmHg Essential hypertension 10/13/2017 Overview: Formatting of this note might be differ ent from the original. Renal angio 2015- reportedly normal per patient Resolved Problems Problem Noted Date Resolved Date Tobacco abuse 10/14/2017 10/13/2018 Encounters Care Team Description Date Type Specialty Jazmín Reed RN Labs Only 08/22/2021 Telephone Cardiology Christa Fox MD 07/26/2021 Hospital Radiology Encounter Christa Fox MD Polyarthralgia (Primary Dx); Rash; Chronic kidney disease, unspecified CKD stage; History of left shoulder replacement 07/26/2021 Office Visit Rheumatology Christa Fox MD 07/26/2021 Hospital Lab Encounter 07/26/2021 Travel from Last 3 Months Immunizations Name Administration Dates Next Due Surgical History Surgery Date Site/Laterality Comments SHOULDER SURGERY Medical History Medical History Date Comments CAD (coronary artery disease) 10/26/2017 Essential hypertension 10/13/2017 Renal angio 201 5- reportedly normal per patient Hypercholesteremia 10/14/2017 Coronary artery disease due to lipid 10/13/2017 [facility] 02/2015- [place] in [place]- Diffuse 50-70% LAD rich plaque and Diag disease, plaque in LCX and nondominant RCA, LVEF- Nml Type 2 diabetes mellitus without 10/13/2018 complication (HCC) Family History Medical History Relation Name Comments Cancer Father Relation Name Status Comments Father Mother Sister Alive Social History Date Tobacco Use Types Packs/Day Years Used Quit: 05/10/2018 Former Smoker Cigarettes 0.25 30 Smokeless Tobacco: Former Snuff Quit: 2017 User Comments Alcohol Use Standard Drinks/Week Yes 2 (1 standard drink = 0.6 o z pure alcohol) Sex Assigned at Date Recorded Not on file Last Filed Vital Signs Reading Time Taken Comments Vital Sign 157/99 07/26/2021 3:19 PM STOCK COUNTER Blood Pressure 53 07/26/2021 3:19 PM STOCK COUNTER Pulse 36.9 C (98.5 F) 07/26/2021 3:19 PM STOCK COUNTER Temperature 18 07/26/2021 3:19 PM STOCK COUNTER Respiratory Rate 98% 07/26/2021 3:19 PM STOCK COUNTER Oxygen Saturation - - Inhaled Oxygen Concentration 108.2 kg (238 lb 9.6 oz) 07/26/2021 3:19 PM STOCK COUNTER Weight 175.3 cm (5' 9") 07/26/2021 3:19 PM STOCK COUNTER Height 35.24 07/26/2021 3:19 PM STOCK COUNTER Body Mass Index Plan of Treatment Health Maintenance Due Date Last Done Comments HIV SCREENING 1982 DILATED EYE EXAM 1985 DTAP/TDAP VACCINES (1 - 1985 Tdap) FOOT EXAM 1985 HEPATITIS C SCREENING 1985 PHYSICAL (COMPREHENSIVE) 1985 EXAM COLORECTAL CANCER 2017 SCREENING SHINGLES RECOMBINANT 2017 VACCINE (1 of 2) HBA1C 03/05/2020 09/05/2019, 09/14/2018 INFLUENZA VACCINE 03/10/2021 COVID-19 VACCINE (2 - 04/19/2021 02/22/2021 Booster for Kev series) Procedures Comments Procedure Name Priority Date/Time Associated Diag nosis L SPINE AP & LATERAL Routine 07/26/2021 Polyarthr algia 5:08 PM STOCK COUNTER Rash PELVIS ANTEROPOSTERIOR Routine 07/26/2021 Polyart hralgia 5:08 PM STOCK COUNTER Rash SI JOINTS MIN 3 VIEWS Routine 07/26/2021 Polyarth ralgia 5:08 PM STOCK COUNTER Rash BOTH KNEES STANDING AP Routine 07/26/2021 Polyart hralgia 5:08 PM STOCK COUNTER Rash FOOT 2 VIEW BILATERAL Routine 07/26/2021 Polyarth ralgia 5:08 PM STOCK COUNTER Rash HAND 2 VIEWS BILATERAL Routine 07/26/2021 Polyart hralgia 5:08 PM STOCK COUNTER Rash HC RHEUMATOID Routine 07/26/2021 Polyarthralgia FACTOR:QUANT 4:05 PM STOCK COUNTER Rash HC CCP IGG ANTIBODY Routine 07/26/2021 Polyarthra lgia 4:05 PM STOCK COUNTER Rash HC COMPREHENSIVE Routine 07/26/2021 Polyarthralgi a METABOLIC PANEL 4:05 PM STOCK COUNTER Rash HC CBC W/ AUTOMATED DIFF Routine 07/26/2021 Polya rthralgia 4:05 PM STOCK COUNTER Rash HC SED RATE; MANUAL Routine 07/26/2021 Polyarthra lgia 4:05 PM STOCK COUNTER Rash HC C-REACTIVE PROTEIN Routine 07/26/2021 Polyarth ralgia (CRP) 4:05 PM STOCK COUNTER Rash from Last 3 Months Results * SI JOINTS MIN 3 VIEWS (07/26/2021 5:08 PM STOCK COUNTER) Modality Anatomical Region Laterality Computed Radiography Pelvis Specimen Impressions [facility] RESULTS - 07/26/2021 5:20 PM STOCK COUNTER 1. No evidence of inflammatory arthrit is. 2. 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 Dedicated wrist imaging would be helpful for further evaluation. Finalized by Franklyn Muro M.D. on 07/26/2021 5:20 PM. Dictated by Franklyn Muro M.D. on 07/26/2021 5:13 PM. Narrative [facility] RESULTS - 07/26/2021 5:20 PM STOCK COUNTER Exam: FOOT 2 VIEW BILATERAL, L SPINE [...] RESULTS * PELVIS ANTEROPOSTERIOR (07/26/2021 5:08 PM STOCK COUNTER) Modality Anatomical Region Laterality Computed Radiography Pelvis Specimen Impressions [facility] RESULTS - 07/26/2021 5:20 PM STOCK COUNTER 1. No evidence of inflammatory arthrit is. 2. 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 Dedicated wrist imaging would be helpful for further evaluation. Finalized by Franklyn Muro M.D. on 07/26/2021 5:20 PM. Dictated by Franklyn Muro M.D. on 07/26/2021 5:13 PM. Narrative [facility] RESULTS - 07/26/2021 5:20 PM STOCK COUNTER Exam: FOOT 2 VIEW BILATERAL, L SPINE [...] P sylvia Number [facility] RESULTS * L SPINE AP & LATERAL (07/26/2021 5:08 PM STOCK COUNTER) Modality Anatomical Region Laterality Computed Radiography Spine, L-Spine Specimen Impressions [facility] RESULTS - 07/26/2021 5:20 PM STOCK COUNTER 1. No evidence of inflammatory arthrit is. 2. 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 Dedicated wrist imaging would be helpful for further evaluation. Finalized by Franklyn Muro M.D. on 07/26/2021 5:20 PM. Dictated by Franklyn Muro M.D. on 07/26/2021 5:13 PM. Narrative [facility] RESULTS - 07/26/2021 5:20 PM STOCK COUNTER Exam: FOOT 2 VIEW BILATERAL, L SPINE [...] HAND 2 VIEWS BILATERAL (07/26/2021 5:08 PM STOCK COUNTER) Modality Anatomical Region Laterality Computed Radiography Hand Bilateral Specimen Impressions [facility] RESULTS - 07/26/2021 5:20 PM STOCK COUNTER 1. No evidence of inflammatory arthrit is. 2. 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 Dedicated wrist imaging would be helpful for further evaluation. Finalized by Franklyn Muro M.D. on 07/26/2021 5:20 PM. Dictated by Franklyn Muro M.D. on 07/26/2021 5:13 PM. Narrative [facility] RESULTS - 07/26/2021 5:20 PM STOCK COUNTER Exam: FOOT 2 VIEW BILATERAL, L SPINE [...] FOOT 2 VIEW BILATERAL (07/26/2021 5:08 PM STOCK COUNTER) Modality Anatomical Region Laterality Computed Radiography Foot Bilateral Specimen Impressions [facility] RESULTS - 07/26/2021 5:20 PM STOCK COUNTER 1. No evidence of inflammatory arthrit is. 2. 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 Dedicated wrist imaging would be helpful for further evaluation. Finalized by Franklyn Muro M.D. on 07/26/2021 5:20 PM. Dictated by Franklyn Muro M.D. on 07/26/2021 5:13 PM. Narrative [facility] RESULTS - 07/26/2021 5:20 PM STOCK COUNTER Exam: FOOT 2 VIEW BILATERAL, L SPINE [...] BOTH KNEES STANDING AP (07/26/2021 5:08 PM STOCK COUNTER) Modality Anatomical Region Laterality Computed Radiography Knee Bilateral Specimen Impressions [facility] RESULTS - 07/26/2021 5:20 PM STOCK COUNTER 1. No evidence of inflammatory arthrit is. 2. 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 Dedicated wrist imaging would be helpful for further evaluation. Finalized by Franklyn Muro M.D. on 07/26/2021 5:20 PM. Dictated by Franklyn Muro M.D. on 07/26/2021 5:13 PM. Narrative [facility] RESULTS - 07/26/2021 5:20 PM STOCK COUNTER Exam: FOOT 2 VIEW BILATERAL, L SPINE [...] * RHEUMATOID FACTOR (RF) (07/26/2021 4:05 PM STOCK COUNTER) Rheum Factor <10 <25 IU/mL [facility] Screen Specimen Blood (substance) Performing Organization Address City/State/ZIP Code P sylvia Number [facility] [address] [place] [address] * CCP IGG ANTIBODY (07/26/2021 4:05 PM STOCK COUNTER) Pathologist [facility] CCP IgG <0.5 <3.0 U/mL [facility] Antibody Specimen Blood (substance) Performing Organization Address [facility] P sylvia Number [facility] [address] [place] [address] * SED RATE (07/26/2021 4:05 PM STOCK COUNTER) Pathologist [facility] Sed Rate -ESR 19 0 - 20 MM/HR [facility] Specimen Blood (substance) Performing Organization Address [facility] P sylvia Number [facility] [address] [place] [address] * (ABNORMAL) CBC AND DIFF (07/26/2021 4:05 PM STOCK COUNTER) Pathologist [facility] White Blood 7.4 4.5 - 11.0 K/UL [...] Count Specimen Blood (substance) Performing Organization Address [facility] P sylvia Number [facility] [address] [place] [address] * C REACTIVE PROTEIN (CRP) (07/26/2021 4:05 PM STOCK COUNTER) C-Reactive 0.31 <1.0 MG/DL [facility] Protein Specimen Blood (substance) Performing Organization Address City/[facility]/ZIP Code P sylvia Number [facility] [address] [place] [phone] * (ABNORMAL) COMPREHENSIVE METABOLIC PANEL (07/26/2021 4:05 PM STOCK COUNTER) Sodium 142 137 - 147 MMOL/L [facility] [...] equation Specimen Blood (substance) Performing Organization Address [facility]/ZIP Code P sylvia Number [facility] [address] [place] [address] from Last 3 Months Insurance Type Payer Benefit Subscriber ID Effective Phone Address Plan / Dates Group PPO [facility] [id number] 2021-P [phone] [id number] [facility] [place] [address] [id number] 1 Advance Directives Patient Discount Clerk Explanation Type Date Recorded Advance 10/26/2017 7:01 AM Directive/DPOA Date Inactivated Comments Code Status Date Activated 10/27/2017 12:06 PM Full Code 10/26/2017 11:14 AM Provider has discussed Code Status No, more discussi on w/Patient or Family? needed Care Teams Start Date End Date Nut Dehydrator Operator Relationship Specialty 09/19/19 Shar Rosenberg DO PCP - General [place] [address] [place] [address]
[2021-08-26 11:28] LABS: BASOPHILS # (AUTO) 0.1 10^3/uL (0.0-0.1); BASOPHILS % (AUTO) 1 % (0-10); EOSINOPHILS # (AUTO) 0.2 10^3/uL (0.0-0.3); EOSINOPHILS % (AUTO) 2 % (0-10); HEMATOCRIT 53 % (40-54); HEMOGLOBIN 17.5 g/dL (13.3-17.7); LYMPHOCYTES # (AUTO) 2.1 10^3/uL (1.0-4.0); LYMPHOCYTES % (AUTO) 20 % (12-44); MEAN CORPUSCULAR HEMOGLOBIN 31 pg (25-34); MEAN CORPUSCULAR HGB CONC 33 g/dL (32-36); MEAN CORPUSCULAR VOLUME 92 fL (80-99); MEAN PLATELET VOLUME 11.5 fL (9.0-12.2); MONOCYTES # (AUTO) 0.9 10^3/uL (0.0-1.0); MONOCYTES % (AUTO) 9 % (0-12); NEUTROPHILS # (AUTO) 7.3 10^3/uL (1.8-7.8); NEUTROPHILS % (AUTO) 69 % (42-75); PLATELET COUNT 210 10^3/uL (130-400); WHITE BLOOD COUNT 10.6 10^3/uL (4.3-11.0)
[2021-08-26 11:43] LABS: CHLORIDE 101 MMOL/L (98-107); POTASSIUM 3.5 MMOL/L (3.6-5.0); SODIUM 141 MMOL/L (135-145)
[2021-08-26 11:44] LABS: CALCIUM 10.5 MG/DL (8.5-10.1)
[2021-08-26 11:45] LABS: GLUCOSE 124 MG/DL (70-105); TOTAL PROTEIN 8.9 GM/DL (6.4-8.2)
[2021-08-26] MEDS ORDERED: HYDROmorphone 2 MG/ML VIAL (DILAUDID) IV ONE (11:45)
[2021-08-26] MEDS ORDERED: LACTATED RINGERS 1,000 ML IV ONE ×2 (11:45→13:20)
--- NOTE | 2021-08-26 11:45 | ED Abdominal Pain ---
General Chief Complaint: Abdominal/GI Problems Stated Complaint: PANCREATITIS Nursing Triage Note: PATIENT REPORTS TO ED FOR LUQ PAIN X'S TWO WEEKS. REPORTS IT IS PANCREATITIS, LAST LIPASE 165 ON 08/22/21. REPORTS PAIN IS INCREASING, HE HAS NOT BEEN ABLE TO EAT. PATIENT AMB. TO ROOM 04 WITHOUT DIFFICULTY. Source of Information: Patient Exam Limitations: No Limitations (LARRY MALIK APRN) History of Present Illness Date Seen by Provider: Aug 26, 2021 Time Seen by Provider: 11:32 Initial Comments This is a well-appearing 56-year-old male who presented to the ER with complaints of mid abdominal pain for the past 2 weeks. States he saw his primary care provider and was diagnosed with pancreatitis. On 08/22/2021 he had a lipase level of 165 and was scheduled to have repeat labs and today. However, his pain is increasing and he has not been able to eat without severe pain so he presented to the emergency department for further work-up. States that he was given hydrocodone for pain management however his pain is more severe today than it has been in the past. No fever, chills, cough, shortness of breath, chest pain. States that he was told to maintain a clear liquid diet over the weekend however he did try some rice which worsened his symptoms. (LARRY MALIK APRN) Allergies and Home Medications Allergies Uncoded Allergies: STATI (Allergy, Mild, Abdominal Pain, 08/26/21) Patient Home Medication List Home Medication List Reviewed: Yes (LARRY MALIK APRN) Review of Systems Review of Systems Constitutional: no symptoms reported EENTM: No Symptoms Reported Respiratory: No Symptoms Reported Cardiovascular: No Symptoms Reported Gastrointestinal: Denies Abdomen Distended; Abdominal Pain; Denies Nausea; Poor Fluid Intake; Denies Vomiting Genitourinary: No Symptoms Reported Musculoskeletal: no symptoms reported Skin: no symptoms reported Psychiatric/Neurological: No Symptoms Reported Endocrine: No Symptoms Reported Hematologic/Lymphatic: No Symptoms Reported (LARRY MALIK APRN) Past Lkfgkvu-Htoeon-Vxyqtz Hx Patient Social History Tobacco Use?: No Substance use?: Yes Substance type: Marijuana Additional substance use comme: USED LAST WEEK Substance frequency: Once in a while Alcohol Use?: No Pt feels they are or have been: No (LARRY MALIK APRN) Immunizations Up To Date First/Initial COVID19 Vaccinat: 02/2021 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 oz. kg; 32.00 BMI Method: General Appearance: WD/WN, no apparent distress HEENT: PERRL/EOMI, normal ENT inspection, pharynx normal Neck: full range of motion, supple Respiratory: lungs clear, normal breath sounds, no respiratory distress, no accessory muscle use Cardiovascular: regular rate, rhythm, no murmur Gastrointestinal: normal bowel sounds, soft, tenderness (Mid abdominal tenderness with light and deep palpation ) Extremities: normal range of motion, non-tender, normal inspection Back: normal inspection Neurologic/Psychiatric: no motor/sensory deficits, alert, normal mood/affect, oriented x 3 Skin: normal color, warm/dry (LARRY MALIK APRN) Progress/Results/Core Measures Results/Orders Lab Results Laboratory Tests Test 08/26/21 11:19 Range/Units White Blood Count 10.6 4.3-11.0 10^3/uL Red Blood Count 5.73 H 4.30-5.52 10^6/uL Hemoglobin 17.5 13.3-17.7 g/dL Hematocrit 53 40-54 % Mean Corpuscular Volume 92 80-99 fL Mean Corpuscular Hemoglobin 31 25-34 pg Mean Corpuscular Hemoglobin Concent 33 32-36 g/dL Red Cell Distribution Width 14.3 10.0-14.5 % Platelet Count 210 130-400 10^3/uL Mean Platelet Volume 11.5 9.0-12.2 fL Immature Granulocyte % (Auto) 0 % Neutrophils (%) (Auto) 69 42-75 % Lymphocytes (%) (Auto) 20 12-44 % Monocytes (%) (Auto) 9 0-12 % Eosinophils (%) (Auto) 2 0-10 % Basophils (%) (Auto) 1 0-10 % Neutrophils # (Auto) 7.3 1.8-7.8 10^3/uL Lymphocytes # (Auto) 2.1 1.0-4.0 10^3/uL Monocytes # (Auto) 0.9 0.0-1.0 10^3/uL Eosinophils # (Auto) 0.2 0.0-0.3 10^3/uL Basophils # (Auto) 0.1 0.0-0.1 10^3/uL Immature Granulocyte # (Auto) 0.0 0.0-0.1 10^3/uL Sodium Level 141 135-145 MMOL/L Potassium Level 3.5 L 3.6-5.0 MMOL/L Chloride Level 101 98-107 MMOL/L Carbon Dioxide Level 24 21-32 MMOL/L Anion Gap 16 H 5-14 MMOL/L Blood Urea Nitrogen 23 H 7-18 MG/DL Creatinine 1.66 H 0.60-1.30 MG/DL Estimat Glomerular Filtration Rate 49 BUN/Creatinine Ratio 14 Glucose Level 124 H 70-105 MG/DL Calcium Level 10.5 H 8.5-10.1 MG/DL Corrected Calcium 8.5-10.1 MG/DL Total Bilirubin 0.5 0.1-1.0 MG/DL Aspartate Amino Transf (AST/SGOT) 21 5-34 U/L Alanine Aminotransferase (ALT/SGPT) 31 0-55 U/L Alkaline Phosphatase 67 40-136 U/L Total Protein 8.9 H 6.4-8.2 GM/DL Albumin 5.0 H 3.2-4.5 GM/DL Lipase 142 H 8-78 U/L (RACHAEL HOLMAN MD) My Orders Orders - RACHAEL HOLMAN MD Iohexol Injection (Omnipaque 350 Mg/Ml 1 (08/26/21 12:30) Received Contrast (Hold Metformin- Contr (08/26/21 12:30) Sodium Chloride Flush (Catheter Flush Sy (08/26/21 12:30) Ns (Ivpb) (Sodium Chloride 0.9% Ivpb Bag (08/26/21 12:30) (RACHAEL HOLMAN MD) Vital Signs/I&O 08/26/21 08/26/21 08/26/21 11:11 11:11 14:09 Temp 36.6 36.6 36.6 Pulse 86 86 67 Resp 20 20 18 B/P (MAP) 143/107 (119) 143/107 113/77 Pulse Ox 97 97 98 O2 Delivery Room Air Room Air Room Air (RACHAEL HOLMAN MD) Blood Pressure Mean: 119 Progress Progress Note : Progress Note Orders placed for basic labs, lipase, and CT abd/pelvis. Dilaudid 1mg IV and LR wide open. Labs reviewed, lipase slightly improved from his prior. CT abdomen pelvis negative for pancreatitis however noted that findings on CT scan may lag behind clinical presentation. Remaining labs unremarkable. [place] much improved after IVF and pain medication. Will have him follow up with his PCP as directed. Stay on clear liquids for few days, continue home pain management. Reviewed discharge POC and he is agreeable with plan. (LARRY MALIK ELECTRICAL SYSTEMS DESIGNER) Diagnostic Imaging Diagonstic Imaging: CT Plain Films/CT/US/NM/MRI: abdomen, pelvis Comments [facility]ENTERDefine My Style [facility]. [place], [place] NAME: ROBIN CROCEKTT [facility] REC#: [id number] PT STATUS: REG ER : 1965 PHYSICIAN: LARRY MALIK ELECTRICAL SYSTEMS DESIGNER ADMIT DATE: 08/26/21/ER Signed Date of Exam:08/26/21 CT ABDOMEN/PELVIS W EXAMINATION: CT abdomen and pelvis with intravenous contrast. TECHNIQUE: Multiple contiguous axial images were obtained through the abdomen and pelvis after the uneventful administration of intravenous contrast. All CT scans use one or more of the following dose optimizing techniques: Automated exposure control, MA and/or KvP adjustment based on patient size and exam type or iterative reconstruction. HISTORY: Left upper quadrant pain. Evaluate for pancreatitis. COMPARISON: None available. FINDINGS: The heart is unremarkable. Dependent opacities are seen in the lung bases. The pancreas has an unremarkable CT appearance. No focal pancreatic lesion. No peripancreatic inflammatory changes are seen. No evidence of pancreatic ductal dilation. There is hepatic steatosis. No focal hepatic lesions. The portal vein is patent. The gallbladder is unremarkable. Nodule is seen in the left adrenal gland measuring 1.8 cm. The right gland is unremarkable. The spleen and kidneys have a normal appearance. A nonobstructing calculus is seen in the inferior pole of the left kidney measuring 0.4 cm. There is no pathologically enlarged mesenteric or retroperitoneal adenopathy. The bowel loops are nondilated. The appendix is visualized in the right lower quadrant and has a normal appearance. There is no free fluid or free air. No acute osseous abnormalities. There are scattered calcified aortic and iliac atherosclerotic plaque without aneurysm. Ureters and bladder are grossly normal. There is no free air, loculated collection, or adenopathy in the pelvis. IMPRESSION: 1. Unremarkable CT appearance of the pancreas. No peripancreatic inflammatory changes or focal pancreatic lesion. Please note, however, the imaging findings of pancreatitis may lag behind clinical presentation. Recommend follow-up as indicated. 2. Hepatic steatosis. 3. Nodule in the left adrenal gland measuring 1.8 cm. Findings are favored to represent benign adrenal adenoma. If indicated, consider follow-up with adrenal protocol CT or MRI. 4. Nonobstructing calculus in the inferior pole of the left kidney. No obstructing calculi or hydronephrosis. Dictated by: Dictated on workstation # [id number] Dict: 08/26/21 1234 Trans: 08/26/21 1256 [id number] Interpreted by: FRANCIS RAMOS DO Electronically signed by: FRANCIS RAMOS DO 08/26/21 1256 (LARRY MALIK APRN) Departure Impression Primary Impression: Pancreatitis Disposition: HOME, SELF-CARE Condition: Improved Departure-Patient Inst. Decision time for Depature: 14:03 (LARRY MALIK APRN) Referrals: JENAE DAY DO (PCP/Family) Primary Care Physician Patient Instructions: Pancreatitis Add. Discharge Instructions: Plan: 1. Clear liquids, preferably water the remainder of the day. Then advance slowly to juice/broth in small amounts. If you develop pain please switch back to water only. 2. Follow up with your doctor later this week. 3. Continue your home pain and nausea medication as needed and directed. 4. Return for any new, concerning, or worsening symptoms. All discharge instructions reviewed with patient and/or family. Voiced understanding. ATTENDING PHYSICIAN NOTE: I was physically present as attending physician in the emergency department during the care of this patient, but I was not directly involved in the decision making or delivery of care for this patient. (RACHAEL HOLMAN MD) LARRY MALIK APRN Aug 26, 2021 11:45 RACHAEL HOLMAN MD Sep 01, 2021 06:45
[2021-08-26 11:46] LABS: CARBON DIOXIDE 24 MMOL/L (21-32)
[2021-08-26 11:47] LABS: BILIRUBIN,TOTAL 0.5 MG/DL (0.1-1.0)
[2021-08-26 11:49] LABS: ALKALINE PHOSPHATASE 67 U/L (40-136); CREATININE SERUM 1.66 MG/DL (0.60-1.30); GFR ESTIMATED 49
[2021-08-26 11:50] LABS: BUN/CREATININE RATIO 14
[2021-08-26 11:52] LABS: ALANINE AMINOTRANSFERASE 31 U/L (0-55); LIPASE 142 U/L (8-78)
[2021-08-26] MEDS ORDERED: NS 100 ML (IVPB) BAG IV ONE (12:30)
[2021-08-26] MEDS ORDERED: CATHETER FLUSH 10 ML SYR IV PRN (12:30)
[2021-08-26] MEDS ORDERED: HOLD METFORMIN - RECEIVED CONTRAST 20 ML VIAL IV SCH (12:30)
[2021-08-26] MEDS ORDERED: IOHEXOL 350 MG/ML 100 ML (OMNIPAQUE 350) VIAL IV ONE (12:30)
--- NOTE | 2021-08-26 12:47 | Diagnostic Imaging Report ---
EXAMINATION: CT abdomen and pelvis with intravenous contrast. TECHNIQUE: Multiple contiguous axial images were obtained through the abdomen and pelvis after the uneventful administration of intravenous contrast. All CT scans use one or more of the following dose optimizing techniques: Automated exposure control, MA and/or KvP adjustment based on patient size and exam type or iterative reconstruction. HISTORY: Left upper quadrant pain. Evaluate for pancreatitis. COMPARISON: None available. FINDINGS: The heart is unremarkable. Dependent opacities are seen in the lung bases. The pancreas has an unremarkable CT appearance. No focal pancreatic lesion. No peripancreatic inflammatory changes are seen. No evidence of pancreatic ductal dilation. There is hepatic steatosis. No focal hepatic lesions. The portal vein is patent. The gallbladder is unremarkable. Nodule is seen in the left adrenal gland measuring 1.8 cm. The right gland is unremarkable. The spleen and kidneys have a normal appearance. A nonobstructing calculus is seen in the inferior pole of the left kidney measuring 0.4 cm. There is no pathologically enlarged mesenteric or retroperitoneal adenopathy. The bowel loops are nondilated. The appendix is visualized in the right lower quadrant and has a normal appearance. There is no free fluid or free air. No acute osseous abnormalities. There are scattered calcified aortic and iliac atherosclerotic plaque without aneurysm. Ureters and bladder are grossly normal. There is no free air, loculated collection, or adenopathy in the pelvis. IMPRESSION: 1. Unremarkable CT appearance of the pancreas. No peripancreatic inflammatory changes or focal pancreatic lesion. Please note, however, the imaging findings of pancreatitis may lag behind clinical presentation. Recommend follow-up as indicated. 2. Hepatic steatosis. 3. Nodule in the left adrenal gland measuring 1.8 cm. Findings are favored to represent benign adrenal adenoma. If indicated, consider follow-up with adrenal protocol CT or MRI. 4. Nonobstructing calculus in the inferior pole of the left kidney. No obstructing calculi or hydronephrosis. Dictated by: Dictated on workstation # [id number]
[2021-08-26 14:09] VITALS: BP 113/77
== END 2021-08-26 14:08 | disposition home or self-care (01) ==
LOC: EDUNIT# 10:54 → ER 10:55
DX: K85.90 Acute pancreatitis without necrosis or infection, unspecified (principal)
CPT/HCPCS: 36415; 74177; 80053; 83690; 85025; 96361; 96374